=== PATIENT | female | born 1995 | race African-American/Black ===

== ENCOUNTER 2018-08-09 13:49 | Observation (INO) | payer MEDICAID ==
[~2018-08-09] VITALS: Ht 160 cm; Wt 102.5 kg
[2018-08-09] MEDS ORDERED: PREN-142 PO (14:34)
== END 2018-08-09 15:25 | disposition home or self-care (01) ==
LOC: 8 EST LDRP 13:49
PROVIDERS: ADMIT Obstetrics & Gynecology; ATTEND Obstetrics & Gynecology
DX: O26.893 Other specified pregnancy related conditions, third trimester (principal); R10.9 Unspecified abdominal pain; Z3A.39 39 weeks gestation of pregnancy
CPT/HCPCS: 99281; G0378

== ENCOUNTER 2023-01-15 17:42 | Emergency (ER) | payer MEDICAID, OTHER ==
[~2023-01-15] VITALS: Ht 157.5 cm; Wt 60.0 kg
[~2023-01-15 17:42] MED LIST: PRENATAL ONE T1 EACH PO
[2023-01-15 17:46] VITALS: BP 130/80; PULSE 88; RESP 16; TEMP 98.7; O2SAT 100
[2023-01-15] MEDS ORDERED: KETOROLAC 60MG/2ML VIAL IM ONE (19:15)
[2023-01-15] MEDS ORDERED: NAPR-1176 MT (19:34)
== END 2023-01-15 21:36 | disposition home or self-care (01) ==
LOC: ER 17:42
DX: M54.50 Low back pain, unspecified (principal); R51.9 Headache, unspecified; Z00.00 Encounter for general adult medical examination without abnormal findings; V49.9XXA Car occupant (driver) (passenger) injured in unspecified traffic accident, initial encounter; Y93.89 Activity, other specified; Y92.89 Other specified places as the place of occurrence of the external cause; Y99.8 Other external cause status
CPT/HCPCS: 99283